=== PATIENT | female | born 1990 | race Caucasian/White ===

== ENCOUNTER 2016-06-30 21:22 | Emergency (ER) | payer BC, OTHER ==
[~2016-06-30] VITALS: Ht 167.6 cm; Wt 83.9 kg
[2016-06-30 21:25] VITALS: TEMP 36.9; Ht 167.6 cm; Wt 83.9 kg
[2016-06-30] MEDS ORDERED: ONDANSETRON INJ 2 MG/ML 2 ML VIAL IV STA (21:31)
[2016-06-30] MEDS ORDERED: KETOROLAC TROMETHAMINE 30 MG/ML VIAL IV STA (21:31)
[2016-06-30] MEDS ORDERED: SODIUM CHLORIDE 0.9% 1000ML 1,000 ML IV STA ×2 (21:31)
[2016-06-30 21:55] LABS: BASO % 0.3 %; BASO ABS # 0.02 K/uL (0-0.2); COMPLETE YES; EOS % 1.3 %; HEMATOCRIT 40.3 % (37-47); IG% 0.3 %; LYMPH ABS # 2.61 K/uL (1.2-3.4); MEAN CELL VOLUME 87.4 fL (80-100); MEAN CORPUSCULAR HEMOGLOBIN 29.9 pg (25-34); MEAN CORPUSCULAR HGB CONC 34.2 g/dl (32-36); MEAN PLATELET VOLUME 11.3 fL (7.4-10.4); MONO % 6.8 %; NEUT % 53.3 %; PLATELET COUNT 229 K/uL (130-400); RED BLOOD COUNT 4.61 M/uL (4.2-5.4); WHITE BLOOD COUNT 6.87 K/uL (4.8-10.8)
[2016-06-30 21:58] LABS: URINE APPEARANCE CLEAR (CLEAR); URINE BILIRUBIN NEG (NEG); URINE COLOR YELLOW; URINE NITRITE NEG (NEG); URINE SPECIFIC GRAVITY 1.009 (1.000-1.030); UROBILINOGEN NEG (NEG); ZZUR CULT IF INDIC CLEAN CATCH NO
[2016-06-30 22:14] LABS: MANUAL MICROSCOPIC REQUIRED? NO; REVIEW REQ? NO
[2016-06-30 22:14] LABS: BUN/CREATININE RATIO 16.6 (10-20); CALCIUM 8.7 mg/dl (8.5-10.1); CREATININE 0.76 mg/dl (0.60-1.20); POTASSIUM 3.8 mmol/L (3.5-5.1)
[2016-06-30 22:21] LABS: PREG INTERNAL NEGATIVE QC NEG CLEAR BACKGROUND; PREG INTERNAL POSITIVE QC POS CONTROL LINE
[2016-06-30] MEDS ORDERED: MoRPHine SULFATE 4 MG/ML 1 ML CARP\\VIAL IV STA (23:16)
[2016-06-30] MEDS ORDERED: OPTIRAY 320 IV PRN (23:30)
--- NOTE | 2016-07-01 00:33 | EMERGENCY ROOM VISIT NOTE ---
History First contact with patient: 21:29 Chief Complaint: HEMATURIA Stated Complaint: RT FLANK PAIN,BLOOD IN URINE History of Present Illness The patient is a 25 year old female who presents to the Emergency Room with complaints of right flank pain and urinary symptoms for the past day. No history kidney stones. She has had bladder infections before. Patient complains of urinary frequency and hematuria that is not always present. She describes pain as aching, ranging in severity 5 out of 10. Nothing makes it better or worse. It does not radiate. Patient denies chest pain, dyspnea, fever, chills, vomiting, diarrhea, vaginal itching or discharge. Last menstrual cycle 2 weeks ago. No history of kidney stones or hematuria in the past. No new medications. Review of Systems See HPI for pertinent positives & negatives. A total of 10 systems reviewed and were otherwise negative. Past Medical/Surgical History Asthma Social History Smoking Status: Former Smoker Smokeless Tobacco Use: No Alcohol Use: occasionally Drug Use: none Marital Status: in relationship Occupation Status: [employer] student Allergies Coded Allergies: Lamotrigine (Verified Allergy, Mild, Rash, 06/30/16) Physical Exam Vital Signs Date Time Temp Pulse Resp B/P Pulse Ox O2 Delivery O2 Flow Rate FiO2 07/01/16 00:15 06/30/16 23:19 63 18 112/72 100 Room Air 06/30/16 21:25 36.9 93 16 123/84 96 Room Air Physical Exam VITALS: Vitals are noted on the nurse's note and reviewed by myself. Vital signs stable. GENERAL: Pleasant female, in no acute distress, nondiaphoretic, well-developed well-nourished. SKIN: The skin was without rashes, erythema, edema, or bruising. There is no tenting of the skin. Capillary reflex less than 2 seconds. HEAD: Normocephalic atraumatic. EARS: External auditory canals clear, tympanic membranes pearly randall without erythema or effusion bilaterally. EYES: Pupils equal round and reactive to light and accommodation. Conjunctivae without injection, sclerae without icterus. Extraocular movements intact. NOSE: Patent, turbinates without inflammation or discharge. MOUTH: Mucous membranes moist. Pharynx without erythema or exudate. Uvula midline. Airway patent. Tongue does not deviate. NECK: Supple without nuchal rigidity. No lymphadenopathy. No thyromegaly. Cervical spine is nontender. No JVD. HEART: Regular rate and rhythm without murmurs gallops or rubs. LUNGS: Clear to auscultation bilaterally without wheezes, rales or rhonchi. No dullness to percussion. No retractions or accessory muscle use. ABDOMEN: Positive bowel sounds x 4. Normal tympanic percussion. Soft, minimal bladder tenderness, no CVA tenderness, without masses or organomegaly. Hernandez sign negative. No guarding or rebound tenderness. MUSCULOSKELETAL: No muscle atrophy, erythema, or edema noted. NEURO: Patient was alert and oriented to person place and time. Normal sensation to light and sharp touch. No focal neurological deficits. Medical Decision & Procedures Laboratory Results 06/30/16 21:45 Red Blood Count 4.61, Mean Corpuscular Volume 87.4, Mean Corpuscular Hemoglobin 29.9, Mean Corpuscular Hemoglobin Concent 34.2, Mean Platelet Volume 11.3, Neutrophils (%) (Auto) 53.3, Lymphocytes (%) (Auto) 38.0, Monocytes (%) (Auto) 6.8, Eosinophils (%) (Auto) 1.3, Basophils (%) (Auto) 0.3, Neutrophils # (Auto) 3.66, Lymphocytes # (Auto) 2.61, Monocytes # (Auto) 0.47, Eosinophils # (Auto) 0.09, Basophils # (Auto) 0.02 06/30/16 21:45 Test 06/30/16 00:00 06/30/16 21:30 06/30/16 21:45 Total Creatine Kinase 73 U/L (26-192) Urine Color YELLOW Urine Appearance CLEAR (CLEAR) Urine pH 6.0 (4.5-7.5) Urine Specific [place] 1.009 (1.000-1.030) Urine Protein NEG (NEG) Urine Glucose (UA) NEG (NEG) Urine Ketones NEG (NEG) Urine Occult Blood NEG (NEG) Urine Nitrite NEG (NEG) Urine Bilirubin NEG (NEG) Urine Urobilinogen NEG (NEG) Urine Leukocyte Esterase NEG (NEG) White Blood Count 6.87 K/uL (4.8-10.8) Red Blood Count 4.61 M/uL (4.2-5.4) Hemoglobin 13.8 g/dL (12.0-16.0) Hematocrit 40.3 % (37-47) Mean Corpuscular Volume 87.4 fL (80-100) Mean Corpuscular Hemoglobin 29.9 pg (25-34) Mean Corpuscular Hemoglobin Concent 34.2 g/dl (32-36) Platelet Count 229 K/uL (130-400) Mean Platelet Volume 11.3 fL (7.4-10.4) Neutrophils (%) (Auto) 53.3 % Lymphocytes (%) (Auto) 38.0 % Monocytes (%) (Auto) 6.8 % Eosinophils (%) (Auto) 1.3 % Basophils (%) (Auto) 0.3 % Neutrophils # (Auto) 3.66 K/uL (1.4-6.5) Lymphocytes # (Auto) 2.61 K/uL (1.2-3.4) Monocytes # (Auto) 0.47 K/uL (0.11-0.59) Eosinophils # (Auto) 0.09 K/uL (0-0.5) Basophils # (Auto) 0.02 K/uL (0-0.2) RDW Standard Deviation 39.8 fL (36.4-46.3) RDW Coefficient of Variation 12.4 % (11.5-14.5) Immature Granulocyte % (Auto) 0.3 % Immature Granulocyte # (Auto) 0.02 K/uL (0.00-0.02) Anion Gap 10.0 mmol/L (3-11) Est Creatinine Clear Calc Drug Dose 124.5 ml/min Estimated GFR () 127.2 Estimated GFR (Non- 109.8 BUN/Creatinine Ratio 16.6 (10-20) Calcium Level 8.7 mg/dl (8.5-10.1) Human Chorionic Gonadotropin, Qual NEG (NEG) Medications Administered Medications (Trade) Dose Ordered Sig/Sam Route Start Time Stop Time Status Last Admin Dose Admin Sodium Chloride 1,000 ml @ 999 mls/hr Q1H1M STAT IV 06/30/16 21:31 06/30/16 22:31 DC 06/30/16 21:44 999 MLS/HR Sodium Chloride (Nss 1000ml) 1,000 ml @ 125 mls/hr Q8H STAT IV 06/30/16 21:31 07/01/16 05:30 06/30/16 21:31 125 MLS/HR Ondansetron HCl (Zofran Inj) 4 mg NOW STAT IV 06/30/16 21:31 06/30/16 21:34 DC 06/30/16 21:47 4 MG Ketorolac Tromethamine (Toradol Inj) 30 mg NOW STAT IV 06/30/16 21:31 06/30/16 21:34 DC 06/30/16 21:47 30 MG Morphine Sulfate (MoRPHine SULFATE INJ) 4 mg NOW STAT IV 06/30/16 23:16 06/30/16 23:18 DC 06/30/16 23:23 4 MG ED Course Prior records/ancillary studies reviewed. Triage Nursing notes reviewed. Additional history obtained from the family. The patient's history was concerning for right flank pain and urinary symptoms Differential diagnosis: Etiologies such as renal colic, appendicitis, diverticulitis, mesenteric ischemia, aortic pathology, infections, inflammatory bowel disease, PUD, biliary pathology, UTI, as well as others were entertained. Physical examination findings: As above. ER treatment provided: Toradol, Zofran, IV fluids On reassessment the patient felt better. Diagnostic interpretation by me: The labs revealed no leukocytosis. Negative CPK. Urinalysis revealed There was no sign of UTI. Negative HCG Imaging studies: CT of the abdomen and pelvis as above. CT ABDOMEN & PELVIS: Bilateral dependent/atelectatic opacities noted. Normal appearing appendix. Small bowel ovarian follicles. Contracted gallbladder. Mildly distended urinary bladder with symmetric mild fullness of the proximal collecting systems. No obstructing radiopaque stone. Comparison renal ultrasound dated 06/30/2016 Radiologist: Luis Hathaway M.D. It appears that the patient has mildly distended urinary bladder with symmetric mild fullness of the proximal collecting systems. Patient had no obvious stone. No urine infection. Labs are unremarkable. Patient was advised to follow-up urology for further evaluation and workup for abdominal distention and CT imaging. Patient's pain was under control. She was well-appearing. Stable H&H. Stable creatinine. No leukocytosis. Negative hCG. Negative urine. She is advised to return to the ER immediately for severe pain, fevers, vomiting, worsening signs or symptoms or as needed. By the evaluation outlined above emergent etiologies such as appendicitis, diverticulitis, mesenteric ischemia, aortic pathology, infections, inflammatory bowel disease, PUD, biliary pathology, UTI, as well as others were deemed relatively unlikely. The pt informed about the findings as listed above. All questions were answered and pleased with the treatment. Return instructions were outlined and the patient was discharged in stable condition. Referral: The pt was referred to [facility] for follow up care regarding their stone. Case reviewed with my attending Medical Decision As above Impression Primary Impression: Right flank pain Departure Information Dispostion Home / Self-Care Condition GOOD Referrals No Doctor, Assigned (PCP) Patient Instructions My [facility] Additional Instructions Acetaminophen(Tylenol) may be used for fever or pain. Use 1000mg every six hours as needed. Avoid using more than 3000mg in a 24 hour period. Rest and drink plenty of fluids as tolerated. Continue current medications. Avoid strenuous activities and anything that worsens your pain. Resume normal activities once your symptoms resolve. Return to the ER immediately for worsening or persistent flank pain, abdominal pain, vomiting, fevers, chest pains, difficulty breathing, worsening of your condition, or as needed. Follow up with urology in 2-3 days for a recheck of your current condition. Call for an appointment.
[2016-07-01 00:46] VITALS: BP 99/75; PULSE 66; O2SAT 99
--- NOTE | 2016-07-01 05:56 | DIAGNOSTIC IMAGING REPORT ---
RENAL ULTRASOUND HISTORY: Flank pain right flank pain, ? Stone COMPARISON: None. FINDINGS: Right kidney: Maximum dimension 10.4 cm. No evidence for hydronephrosis. Normal corticomedullary differentiation and cortical thickness. Left kidney: Maximum dimension 10.2 cm. No evidence for hydronephrosis. Normal corticomedullary differentiation and cortical thickness. Bladder: No bladder wall thickening. The bilateral ureteral jets were identified. IMPRESSION: Normal renal ultrasound. Electronically signed by: Zain Rosen M.D. 07/01/2016 5:54 AM Dictated Date/Time: 07/01/2016 5:53 AM
--- NOTE | 2016-07-01 06:02 | DIAGNOSTIC IMAGING REPORT ---
ABDOMEN AND PELVIS CT WITH IV CONTRAST CT DOSE: 377.58 mGy.cm HISTORY: Pain. Flank pain. right flank pain TECHNIQUE: Multiaxial CT images of the abdomen and pelvis were performed following the use of intravenous contrast. COMPARISON STUDY: None. FINDINGS: Minimal dependent basilar atelectasis. Liver spleen and pancreas are unremarkable. Bowel pattern overall is considered nonobstructive. The appendix is normal. Small bilateral ovarian follicular cyst. Bladder is midline. No free fluid within pelvic cul-de-sac. IMPRESSION: Small bilateral ovarian follicular cyst. Normal appendix. Otherwise negative abdomen and pelvis. Electronically signed by: Zain Rosen M.D. 07/01/2016 6:01 AM Dictated Date/Time: 07/01/2016 6:00 AM
== END 2016-07-01 00:47 | disposition home or self-care (01) ==
LOC: C.EDB 21:24
DX: R10.30 Lower abdominal pain, unspecified (principal); J45.909 Unspecified asthma, uncomplicated; Z87.440 Personal history of urinary (tract) infections; Z87.891 Personal history of nicotine dependence; Z88.8 Allergy status to other drugs, medicaments and biological substances

== ENCOUNTER 2017-08-15 12:28 | Emergency (ER) | payer OTHER ==
[~2017-08-15] VITALS: Ht 170.2 cm; Wt 83.1 kg
[2017-08-15 12:32] VITALS: TEMP 37; Ht 170.2 cm; Wt 83.1 kg
[2017-08-15] MEDS ORDERED: ALBUT/IPRATROP 3MG/0.5MG NEB 3 ML VIAL INH STA (14:10)
[2017-08-15] MEDS ORDERED: SODIUM CHLORIDE 0.9% 1000ML 1,000 ML IV STA (14:10)
[2017-08-15] MEDS ORDERED: CLON1TAB3 PO (14:13)
[2017-08-15] MEDS ORDERED: CITA40TA12 PO (14:13)
[2017-08-15] MEDS ORDERED: AMOX500C3 PO (14:13)
[2017-08-15] MEDS ORDERED: VENL1CAP92 PO (14:13)
[2017-08-15] MEDS ORDERED: ACETAMINOPHEN IV 100 ML IV ONE (14:15)
[2017-08-15 14:36] LABS: HEMATOCRIT 39.6 % (37-47); HEMOGLOBIN 13.8 g/dL (12.0-16.0); IG# 0.01 K/uL (0.00-0.02); LYMPH % 38.8 %; LYMPH ABS # 1.11 K/uL (1.2-3.4); MEAN CELL VOLUME 87.6 fL (80-100); MEAN CORPUSCULAR HEMOGLOBIN 30.5 pg (25-34); MEAN CORPUSCULAR HGB CONC 34.8 g/dl (32-36); MEAN PLATELET VOLUME 11.6 fL (7.4-10.4); MONO % 12.9 %; MONO ABS # 0.37 K/uL (0.11-0.59); NEUT ABS # 1.37 K/uL (1.4-6.5); PLATELET COUNT 131 K/uL (130-400); RED CELL DISTRIBUTION WIDTH CV 12.8 % (11.5-14.5); RED CELL DISTRIBUTION WIDTH SD 41.2 fL (36.4-46.3); WHITE BLOOD COUNT 2.86 K/uL (4.8-10.8)
--- NOTE | 2017-08-15 14:57 | DIAGNOSTIC IMAGING REPORT ---
CHEST 2 VIEWS ROUTINE HISTORY: cough, fever COMPARISON: None. FINDINGS: The lungs are clear. Cardiac silhouette is normal in size. No pleural effusions. No pneumothorax. IMPRESSION: No acute process. Electronically signed by: Alexander Aguillon M.D. 08/15/2017 2:55 PM Dictated Date/Time: 08/15/2017 2:54 PM
[2017-08-15 14:59] LABS: ALBUMIN 4.1 gm/dl (3.4-5.0); CALCIUM 8.7 mg/dl (8.5-10.1); CREATININE 0.79 mg/dl (0.60-1.20); POTASSIUM 3.6 mmol/L (3.5-5.1)
[2017-08-15] MEDS ORDERED: OPTIRAY 320 IV PRN (15:00)
[2017-08-15 15:02] LABS: TOTAL PROTEIN 7.5 gm/dl (6.4-8.2)
[2017-08-15 15:06] LABS: INFLUENZA B ANTIGEN POS for Influ B (NEG)
[2017-08-15] MEDS ORDERED: OSELTAMIVIR PHOSPHATE 75 MG CAP PO STA (15:57)
[2017-08-15] MEDS ORDERED: SODIUM CHLORIDE 0.9% 1000ML 1,000 ML IV ONE (16:00)
--- NOTE | 2017-08-15 16:04 | DIAGNOSTIC IMAGING REPORT ---
CHEST CTA for PULMONARY ARTERIES CT DOSE: 380.36 mGy.cm HISTORY: Cough. Fever. Short of breath. Elevated d-dimer. TECHNIQUE: Multiaxial CT images of the chest were performed following the intravenous administration of contrast to evaluate the pulmonary arteries. Maximal intensity projection images were also obtained. A dose lowering technique was utilized adhering to the principles of ALARA. COMPARISON STUDY: Chest 08/15/2017. FINDINGS: Normal caliber thoracic aorta with no evidence for dissection. 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 The heart is normal in size. No pleural or pericardial effusions. Mild respiratory motion artifact. However, no definite filling defects within the pulmonary arteries to suggest pulmonary embolus. No fractures within the visualized osseous structures. The visualized liver, spleen, and adrenal glands are unremarkable. No enlarged mediastinal lymph nodes. Borderline enlarged bilateral hilar lymph nodes measuring up to 1 cm in short axis diameter. No pneumothorax. Faint patchy groundglass density seen within the bilateral lower lobes and lingula. Mild right lower lobe bronchial wall thickening. IMPRESSION: 1. No evidence for pulmonary embolus. 2. Faint patchy groundglass densities within the bilateral lower lobes and lingula. There is also mild right lower lobe bronchial wall thickening. This favors a mild infectious pneumonitis. 3. Mild bilateral hilar lymphadenopathy. This could be reactive. One to [address] follow up is recommended to ensure resolution. Electronically signed by: Alexander Aguillon M.D. 08/15/2017 4:02 PM Dictated Date/Time: 08/15/2017 3:54 PM
[2017-08-15] MEDS ORDERED: OSEL75CA12 PO (17:33)
[2017-08-15] MEDS ORDERED: BENZ100C18 PO (17:33)
[2017-08-15] MEDS ORDERED: PRED20TA2 PO (17:33)
[2017-08-15] MEDS ORDERED: ONDA4TAB10 SL (17:33)
[2017-08-15] MEDS ORDERED: VNTHFA/IN INH (17:33)
[2017-08-15 18:00] VITALS: BP 100/78; PULSE 83; O2SAT 99
--- NOTE | 2017-08-16 13:43 | EMERGENCY ROOM VISIT NOTE ---
ED Visit Note First contact with patient: 13:48 Chief Complaint: Sinusitis and dehydration. History of Present Illness: Ms. Ames is a 26-year-old white female who ambulates into the ED complaining of sinusitis and dehydration. [place] patient reports she has a history of asthma. Patient reports her symptoms started approximately 4 days ago with a nonproductive cough, sinus congestion, chills and proceed fevers. She was seen at a local urgent care center and and started on amoxicillin diagnosed with sinusitis 3 days ago. She reports over the last 3 days her symptoms have been getting worse with increased sinus and facial pressure, fevers and chills, productive cough of greenish sputum that is intermittently tinged with blood and vomiting. She reports she has not been able to use her medications because every time she eats or drinks she vomits. Currently she rates her facial discomfort 8/10. Her pain is nonradiating. Her pain worsens with palpation, cough, deep inspiration and bending/leaning forward. She has not identified any alleviating factors related to the pain. She has not been able to take any medications for her discomfort because of her nausea/vomiting. Associated with her pain she reports she hears herself intermittently wheezing, she is experiencing dyspnea on exertion, and she is having palpitations intermittently primarily when coughing. Additionally intermittently when she blows her nose she describes her secretions are greenish and are also tinged with blood. She denies sweats, skin eruptions, skin color changes, headache, dizziness, lightheadedness, inability to swallow, orthopnea, dependent edema, previous clots, claudication, cramping, recent surgery/inactivity/extended travel, estrogen and tobacco use, abdominal plain, hemotympanum, hematemesis, diarrhea, constipation, urinary symptoms, back/flank pain. Review of Systems: As noted above in history of present illness. All body systems were reviewed and found to be negative as noted above. Past Medical History: Hypertension, asthma, bronchitis, pneumonia and status post tonsillectomy. Current Medications: Amoxicillin, Celexa, Klonopin and Effexor. Allergies to Medications: Lamotrigine. Social History: Patient is currently employed; she feels safe in her home environment; she denies tobacco and alcohol use. Physical Examination: Vital Signs: Date Time Temp Pulse Resp B/P (MAP) Pulse Ox O2 Delivery O2 Flow Rate FiO2 08/15/17 18:00 83 20 100/78 99 08/15/17 16:19 71 18 102/67 95 Room Air 08/15/17 14:35 78 18 120/73 96 Room Air 08/15/17 12:32 37.0 110 20 120/87 96 Room Air GENERAL: 26-year-old female in moderate distress due to symptoms, ill-appearing , afebrile and hemodynamically stable. NEUROLOGICAL: Awake, alert and oriented to person, place and time. Answering questions appropriately and following commands. Normal gait. Good hand eye coordination. SKIN: Warm, dry and pink. No soft tissue eruptions or trauma noted. HEENT: Atraumatic and normocephalic. Mild erythema and tenderness over the frontal and maxillary sinuses. No air-fluid levels were seen. External ears are nontender. Auditory canals are pink and patent. Tympanic membranes are not erythematous or bulging. PERRLA. Sclera white and conjunctiva pink without drainage. No drainage from naris but significant audible congestion. Oral cavity moist and pink. Airway is patent. Uvula is midline and no abscesses are seen. Pharynx is nonerythematous or edematous. Speech normal and clear. No lymphadenopathy. Trachea midline. No jugular venous distention. BACK: No tenderness over the bony spine. No nuchal rigidity or meningismus. No CVA tenderness. THORAX: Lungs sounds are clear to auscultation decreased bilateral with prominence on the right and occasional scattered wheezing. Equal bilaterally with symmetrical chest wall. No rales or rhonchi. Mild to moderate tenderness over the anterior chest wall and with compression of the thorax. Without bony deformity, bony crepitus, swelling, ecchymosis or subcutaneous air. HEART: Tachycardic rate and rhythm. No gallops, rubs or murmurs are appreciated. ABDOMEN: Flat, soft and nontender. Positive bowel sounds in all quadrants. No guarding, rigidity or organomegaly. EXTREMITIES: Moves all extremities well on command and with purpose. All distal neurovascular statuses are intact and equal bilaterally. No calf tenderness or cords. ED Course: Patient is assessed as noted above. Patient's medication list was reviewed. Test 08/15/17 14:18 08/15/17 14:20 08/15/17 14:26 08/15/17 14:37 Range/Units White Blood Count 2.86 4.8-10.8 K/uL Red Blood Count 4.52 4.2-5.4 M/uL Hemoglobin 13.8 12.0-16.0 g/dL Hematocrit 39.6 37-47 % Mean Corpuscular Volume 87.6 80-100 fL Mean Corpuscular Hemoglobin 30.5 25-34 pg Mean Corpuscular Hemoglobin Concent 34.8 32-36 g/dl Platelet Count 131 130-400 K/uL Mean Platelet Volume 11.6 7.4-10.4 fL Neutrophils (%) (Auto) 48.0 % Lymphocytes (%) (Auto) 38.8 % Monocytes (%) (Auto) 12.9 % Eosinophils (%) (Auto) 0.0 % Basophils (%) (Auto) 0.0 % Neutrophils # (Auto) 1.37 1.4-6.5 K/uL Lymphocytes # (Auto) 1.11 1.2-3.4 K/uL Monocytes # (Auto) 0.37 0.11-0.59 K/uL Eosinophils # (Auto) 0.00 0-0.5 K/uL Basophils # (Auto) 0.00 0-0.2 K/uL RDW Standard Deviation 41.2 36.4-46.3 fL RDW Coefficient of Variation 12.8 11.5-14.5 % Immature Granulocyte % (Auto) 0.3 % Immature Granulocyte # (Auto) 0.01 0.00-0.02 K/uL Sodium Level 137 136-145 mmol/L Potassium Level 3.6 3.5-5.1 mmol/L Chloride Level 106 98-107 mmol/L Carbon Dioxide Level 21 21-32 mmol/L Anion Gap 10.0 3-11 mmol/L Blood Urea Nitrogen 9 7-18 mg/dl Creatinine 0.79 0.60-1.20 mg/dl Est Creatinine Clear Calc Drug Dose 120.7 ml/min Estimated GFR () 120.6 Estimated GFR (Non- 104.0 BUN/Creatinine Ratio 11.3 10-20 Random Glucose 92 70-99 mg/dl Calcium Level 8.7 8.5-10.1 mg/dl Total Bilirubin 0.3 0.2-1 mg/dl Direct Bilirubin 0.1 0-0.2 mg/dl Aspartate Amino Transf (AST/SGOT) 20 15-37 U/L Alanine Aminotransferase (ALT/SGPT) 22 12-78 U/L Alkaline Phosphatase 56 45-117 U/L Total Protein 7.5 6.4-8.2 gm/dl Albumin 4.1 3.4-5.0 gm/dl Lipase 105 73-393 U/L Urine Color DK YELLOW Urine Appearance CLOUDY CLEAR Urine pH 6.0 4.5-7.5 Urine Specific [place] 1.031 1.000-1.030 Urine Protein TRACE NEG Urine Glucose (UA) NEG NEG Urine Ketones 3+ NEG Urine Occult Blood NEG NEG Urine Nitrite NEG NEG Urine Bilirubin NEG NEG Urine Urobilinogen NEG NEG Urine Leukocyte Esterase TRACE NEG Urine WBC (Auto) 10-30 0-5 /hpf Urine RBC (Auto) 0-4 0-4 /hpf Urine Hyaline Casts (Auto) 5-10 0-5 /lpf Urine Epithelial Cells (Auto) >30 0-5 /lpf Urine Bacteria (Auto) 2+ NEG Urine Pathogenic Casts 0 /lpf Urine Yeast (Auto) NONE PRSENT Urine Test NEG NEG Bedside D-Dimer > 450 0-450 ng/mlFEU Bedside Troponin I < 0.030 0-0.045 ng/ml Influenza Type A Antigen Neg for Influ A NEG Influenza Type B Antigen POS for Influ B NEG Chest X-Rays: Were read by myself and the radiologist showing no acute infiltrates, effusions or pneumothorax. Normal heart silhouette and bony anatomy. Chest CTA: Was reviewed by myself and read by the radiologist showing no evidence of pulmonary embolism, faint patchy groundglass densities within the bilateral lower lobes and lingula favoring pneumonitis and mild bilateral hilar lymphadenopathy. Patient was hydrated with normal saline and received 1 g of acetaminophen IV and albuterol/Atrovent nebulizer breathing treatment. On reassessment of her lungs after her breathing treatment she had improved air movement in all healy and resolution of all wheezing. She was additionally hydrated with 2 additional liters of normal saline and given 75 mg of Tamiflu by mouth. Patient's case was reviewed with Dr. Lowe; we agreed on diagnostic approach, treatment, disposition and plan. Patient was trialed on fluids prior to discharge and had no return of nausea. Patient was educated about today's findings and instructed on her treatment plan ; she verbalized understanding and agreement with this plan. Clinical Impression: Influenza B. Sinusitis. Nausea/vomiting. Decision-Making: Initially my differential diagnosis I considered pneumonia, worsening sinusitis, pulmonary embolism, pleurisy, rib/sternal fracture, bronchitis and other causes. Disposition: Patient discharged home in stable condition; she subjectively reported she was feeling much better. She rated her facial pressure 6/10. She had noted improving coughing and had no return of nausea vomiting even after fluids. Plan: Patient was prescribed Tamiflu 2 times a day for 5 days. Patient was encouraged to continue her antibiotics as prescribed. Patient was encouraged to consider using [id number] pseudoephedrine for congestion. Patient was prescribed Tessalon Perles 100 mg every 8 hours for cough. Patient was placed on 60 mg of prednisone once a day for 5 days. Patient was encouraged to use an inhaler of albuterol 2 puffs every 6 hours for 5 days and as needed for shortness of breath, wheezing or severe coughing episode Patient was also prescribed Zofran 4 mg every 6 hours for nausea vomiting and encouraged to stay well-hydrated. Patient was encouraged to follow-up with her primary care provider for recheck in 2-4 days. Patient was encouraged return the ED for worsening symptoms, uncontrolled fevers , coughing up blood, uncontrolled vomiting, bloody vomitus, uncontrolled shortness of breath/wheezing or any new/concerning symptoms.
== END 2017-08-15 18:02 | disposition home or self-care (01) ==
LOC: C.EDB 12:29 → C.EDC 18:02
DX: J10.1 Influenza due to other identified influenza virus with other respiratory manifestations (principal); J32.9 Chronic sinusitis, unspecified; R11.2 Nausea with vomiting, unspecified; I10 Essential (primary) hypertension; J45.909 Unspecified asthma, uncomplicated; Z87.01 Personal history of pneumonia (recurrent); Z79.2 Long term (current) use of antibiotics; Z79.899 Other long term (current) drug therapy; Z88.8 Allergy status to other drugs, medicaments and biological substances